=== PATIENT | female | born 1975 | race Two or more races ===

== ENCOUNTER 2016-11-17 14:53 | Emergency (ER) | payer OTHER ==
[~2016-11-17 14:53] MED LIST: ANAPROX DS550 M1 PO; AUGMENTIN875 MG PO; MONISTAT 11 EACH VG; NOHOMEMEDS; ROBITUSSIN AC,T10 ML PO; [UNRECOGNIZED DRUG - OTHER] PO; [UNRECOGNIZED DRUG - SUPPLY] VG
[2016-11-17 16:18] LABS: ADD MIUA? YES; BILIRUBIN NEGATIVE; BLOOD NEGATIVE; COLOR YELLOW ((YELLOW)); GLUCOSE (STRIP) NEGATIVE; KETONES 5; LEUKOCYTES NEGATIVE; NITRITE NEGATIVE; PROTEIN (STRIP) NEGATIVE; SPECIFIC GRAVITY 1.014 (1.000-1.030); UROBILINOGEN 0.2 MG/DL (0.2-1.0)
[2016-11-17 16:50] LABS: BACTERIA NONE SEEN /HPF; EPITHELIAL CELLS 1+ /HPF; MUCUS TRACE /LPF; RED BLOOD CELLS NONE SEEN /HPF (0-5); UCUL ADDED? NO; WHITE BLOOD CELLS NONE SEEN /HPF (0-5)
[2016-11-17] MEDS ORDERED: PERCOCET 5/31 TABLET PO (17:39)
[2016-11-17] MEDS ORDERED: FLEXERIL10 MG PO (17:39)
[2016-11-17] MEDS ORDERED: LIDODERM 5% P1 PATCH TD (17:39)
[2016-11-17 18:13] LABS: INTERNAL CONTROL VALID? YES
[2016-11-17 18:20] VITALS: BP 119/74
== END 2016-11-17 18:21 | disposition home or self-care (01) ==
LOC: EME 14:53
PROVIDERS: Nurse Practitioner Family
DX: S39.012A Strain of muscle, fascia and tendon of lower back, initial encounter (principal); X58.XXXA Exposure to other specified factors, initial encounter; M79.604 Pain in right leg; M79.605 Pain in left leg
CPT/HCPCS: 81003; 84703; 99281; 99284